=== PATIENT | male | born 1965 | race Caucasian/White ===

== ENCOUNTER 2020-08-12 10:14 | Emergency (ER) | payer BC, OTHER ==
[~2020-08-12] VITALS: Ht 175.3 cm; Wt 99.4 kg
[~2020-08-12 10:14] MED LIST: LISI1TAB23 PO
[2020-08-12 10:47] LABS: BASOPHILS % (AUTO) 1 % (0-1); EOSINOPHILS % (AUTO) 1 % (1-7); LYMPHOCYTES % (AUTO) 26 % (22-44); MEAN CORPUSCULAR HEMOGLOBIN 32.3 pg (27.5-34.5); MEAN CORPUSCULAR HGB CONC 34.1 g/dL (33.2-36.2); MONOCYTES % (AUTO) 6 % (2-9); NEUTROPHILS % (AUTO) 66 % (42-75); PLATELET COUNT 261 x10^3/uL (130-400); RED BLOOD COUNT 5.16 x10^6/uL (4.38-5.82); RED CELL DISTRIBUTION WIDTH 13.8 % (9.4-14.8)
[2020-08-12 10:55] LABS: MD NO
[2020-08-12 10:58] LABS: ALBUMIN 4.1 g/dL (3.4-5.0); ANION GAP 3 mmol/L (5-15); CHLORIDE 110 mmol/L (98-107)
[2020-08-12 11:02] LABS: ALANINE AMINOTRANSFERASE 15 U/L (12-78); ALKALINE PHOSPHATASE 54 U/L (45-117); BILIRUBIN,TOTAL 0.6 mg/dL (0.2-1.0); CREATININE 1.11 mg/dL (0.7-1.3); TOTAL PROTEIN 7.9 g/dL (6.4-8.2)
--- NOTE | 2020-08-12 11:14 | NUR ---
PT WALKED TO ROOM, CALL LIGHT PLACED WITHIN REACH.
--- NOTE | 2020-08-12 11:27 | NUR ---
PT HERE WITH HEMATURIA THIS AM AT 0900 AFTER HAVING ABD PAIN AND NAUSEA. [employer] STUDENT AT BEDSIDE FOR EVAL.
[2020-08-12 11:47] LABS: MICROSCOPIC INDICATED
[2020-08-12 12:33] VITALS: BP 134/87
== END 2020-08-12 13:06 | disposition home or self-care (01) ==
LOC: ED 11:49 → UNDOADMIN 11:59 → EDIP 11:59
DX: N20.2 Calculus of kidney with calculus of ureter (principal); R10.9 Unspecified abdominal pain; R11.0 Nausea; I10 Essential (primary) hypertension; F17.200 Nicotine dependence, unspecified, uncomplicated
CPT/HCPCS: 36415; 74176; 80053; 81001; 83690; 85025; 87086; 99284

== ENCOUNTER 2021-03-21 09:28 | Emergency (ER) | payer OTHER ==
[~2021-03-21] VITALS: Ht 175.3 cm; Wt 99.6 kg
[2021-03-21] MEDS ORDERED: KETOROLAC 30 MG/1 ML ONE (09:59)
[2021-03-21] MEDS ORDERED: KETOROLAC 30 MG/1 ML IM ONE (10:00)
--- NOTE | 2021-03-21 10:00 | NUR ---
PT AMBULATORY TO ROOM 35 W/ C/O R SIDE FLANK PAIN STARTED YESTERDAY AT 1700. PT STATES PAIN EASED UP THIS AM. "IT'S DEFINITELY NOT BAD IT WAS LAST NIGHT". PT STATES HX KIDNEY STONES. PT RESTING ON GURNEY. NADN. MONITORS APPLIED. VSS. WARM BLANKET PROVIDED.
[2021-03-21 10:23] LABS: MICROSCOPIC NOT IND
--- NOTE | 2021-03-21 11:05 | NUR ---
PT RESTING ON GURNEY. NADN. WHITE.
--- NOTE | 2021-03-21 11:06 | NUR ---
PT RESTING ON ISABELLA. VSS. STATES PAIN 0/10
[2021-03-21 11:10] LABS: BASOPHILS % (AUTO) 1 % (0-1); EOSINOPHILS % (AUTO) 1 % (1-7); LYMPHOCYTES % (AUTO) 19 % (22-44); MEAN CORPUSCULAR HEMOGLOBIN 32.6 pg (27.5-34.5); MEAN CORPUSCULAR HGB CONC 34.5 g/dL (33.2-36.2); MEAN PLATELET VOLUME 7.8 fL (7.4-10.4); MONOCYTES % (AUTO) 9 % (2-9); NEUTROPHILS % (AUTO) 71 % (42-75); PLATELET COUNT 229 x10^3/uL (130-400); RED BLOOD COUNT 4.75 x10^6/uL (4.38-5.82); RED CELL DISTRIBUTION WIDTH 13.6 % (9.4-14.8)
--- NOTE | 2021-03-21 11:26 | NUR ---
ERP DR. SUTTON AT BEDSIDE FOR RE-EVAL.
[2021-03-21 11:29] LABS: ALANINE AMINOTRANSFERASE 19 U/L (12-78); ALBUMIN 3.6 g/dL (3.4-5.0); ANION GAP 8 mmol/L (5-15); CALCIUM 8.8 mg/dL (8.5-10.1); CHLORIDE 107 mmol/L (98-107); CREATININE 1.53 mg/dL (0.7-1.3)
[2021-03-21 11:31] LABS: ALKALINE PHOSPHATASE 52 U/L (45-117); BILIRUBIN,TOTAL 0.6 mg/dL (0.2-1.0); TOTAL PROTEIN 6.9 g/dL (6.4-8.2)
--- NOTE | 2021-03-21 11:54 | NUR ---
PT RESTING ON GURNEY. NADN. WHITE.
--- NOTE | 2021-03-21 12:21 | NUR ---
PT TO AND FROM CT IN STABLE CONDITION.
[2021-03-21 12:52] VITALS: BP 134/82
--- NOTE | 2021-03-21 12:53 | NUR ---
PT AWARE OF POC OF WAITING ON UROLOGY CONSULT. PT RESTING ON GURNEY. NADN. WHITE.
== END 2021-03-21 13:15 | disposition home or self-care (01) ==
LOC: ED 11:48
DX: N20.1 Calculus of ureter (principal); K59.00 Constipation, unspecified; I10 Essential (primary) hypertension; F17.200 Nicotine dependence, unspecified, uncomplicated; Z88.1 Allergy status to other antibiotic agents
CPT/HCPCS: 36415; 74018; 74176; 76770; 80053; 81003; 85025; 96372; 99285; J1885

== ENCOUNTER 2021-05-02 01:39 | Emergency (ER) | payer OTHER ==
[~2021-05-02] VITALS: Ht 175.3 cm; Wt 101.8 kg
[2021-05-02 01:44] VITALS: BP 162/83
--- NOTE | 2021-05-02 02:40 | NUR ---
SOIL SURVEYOR: [id number] FOR REPEAT VITALS
== END 2021-05-02 02:44 | disposition left against medical advice (07) ==
LOC: ED 02:00
DX: N20.0 Calculus of kidney (principal); Z53.21 Procedure and treatment not carried out due to patient leaving prior to being seen by health care provider